=== PATIENT | female | born 1955 | race Caucasian/White ===

== ENCOUNTER → 2017-01-29 | Outpatient (CLI) | payer OTHER ==
[~2017-01-29] MED LIST: CALC-22 PO; HYDR1TAB82 PO; HYDR2TAB20 PO; VENL75TA PO; VIT B
== END ==
LOC: WC.BC 13:03
DX: Z12.31 Encounter for screening mammogram for malignant neoplasm of breast (principal)
CPT/HCPCS: 77063; G0202